=== PATIENT | male | born 1945 | race Caucasian/White ===

== ENCOUNTER 2021-01-18 08:43 | Outpatient (CLI) | payer OTHER, SELFPAY ==
--- NOTE | 2021-01-18 08:57 | MR_ITS ---
WS: [id number] MRI LUMBAR SPINE NONCONTRAST TECHNIQUE: Sagittal T1, T2 and STIR imaging. Axial T1 and T2 imaging. CLINICAL INFORMATION: DEGENERATIVE DISC DISEASE,LEG PAIN/WEAKNESS COMPARISON: None. FINDINGS: Mild lumbar curve. No acute compression. No high-grade central canal stenosis. L1-L2: Mild annular bulging. Mild facet arthropathy. Slight impingement on the right subarticular rec ess. Foramen are patent. L2-L3: Mild annular bulging. Slight effacement of ventral thecal sac. Impingement traversing L3 nerve roots in the subarticular recess. Mild right foraminal narrowing with a small right foraminal protru evelin. Mild facet arthropathy. L3-L4: Mild disc bulging with slight effacement of ventral thecal sac. Slight impingement on the pedro luis ersing L4 nerve roots. Right eccentric disc osteophyte complex impinges the exiting L3 nerve root wit h moderate right foraminal narrowing. Mild left foraminal narrowing. Mild facet arthropathy. L4-L5: Mild disc bulging and osteophytic ridging. Impingement on the traversing L5 nerve roots bilate rally. Mild central canal stenosis. Moderate facet arthropathy. Moderate to severe left foraminal veronica rowing L5-S1: Disc osteophyte complex with endplate ridging. Slight impingement traversing S1 nerve roots bi laterally. Mild right greater than left foraminal narrowing. 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 Visualized pelvic bony structures: Normal. Paravertebral soft tissues: Normal. MR/MR lumbar spine wo con* [id number] IMPRESSION: 1. Mild lumbar curve. No acute compression. No high-grade central canal stenos is. 2. Mild central canal stenosis L4-5 due to disc bulging with facet arthropathy and ligamentum flavum hypertrophy. Impingement traversing L5 nerve roots bilat erally. 3. Moderate to severe left L4-5 foraminal narrowing impinges the exiting left L4 nerve root. 4. Right foraminal protrusion L3-4 with moderate right foraminal narrowing imp inges the exiting right L3 nerve root. 5. Mild annular bulging L5-S1 slightly impinges the traversing S1 nerve roots bilaterally.
== END 2021-01-18 08:44 | disposition home or self-care (01) ==
PROVIDERS: Visit Provider Nurse Practitioner Family
DX: M51.36 Other intervertebral disc degeneration, lumbar region (principal); M79.606 Pain in leg, unspecified; M62.81 Muscle weakness (generalized); W19.XXXA Unspecified fall, initial encounter; M48.061 Spinal stenosis, lumbar region without neurogenic claudication; M51.26 Other intervertebral disc displacement, lumbar region; M51.27 Other intervertebral disc displacement, lumbosacral region
CPT/HCPCS: 72148